=== PATIENT | female | born 1995 | race Caucasian/White ===

== ENCOUNTER 2017-09-09 20:24 | Emergency (ER) | payer OTHER | END 2017-09-09 21:20 | disposition home or self-care (01) | LOC: E/R 21:20 | DX: J30.2 Other seasonal allergic rhinitis (principal) | CPT/HCPCS: 99283; Z7502 ==

== ENCOUNTER 2018-04-02 00:28 | Emergency (ER) | payer OTHER ==
[2018-04-02] MEDS: ACETAMINOPHEN 500 MG TAB PO (04:01)
== END 2018-04-02 04:11 | disposition home or self-care (01) ==
LOC: FTE 00:28
DX: O99.712 Diseases of the skin and subcutaneous tissue complicating pregnancy, second trimester (principal); L02.31 Cutaneous abscess of buttock; Z3A.20 20 weeks gestation of pregnancy
CPT/HCPCS: 99283; Z7502

== ENCOUNTER 2018-04-03 19:37 | Emergency (ER) | payer OTHER ==
[2018-04-03] MEDS: LIDOCAINE 2% (MDV) 20 ML INJ INJ (20:25)
== END 2018-04-03 21:07 | disposition home or self-care (01) ==
LOC: FTE 19:37
DX: L05.01 Pilonidal cyst with abscess (principal)
CPT/HCPCS: 10080; 99282-25

== ENCOUNTER 2018-04-07 12:41 | Emergency (ER) | payer OTHER | END 2018-04-07 14:10 | disposition home or self-care (01) | LOC: FTE 12:41 | DX: O99.89 Other specified diseases and conditions complicating pregnancy, childbirth and the puerperium (principal); Z3A.24 24 weeks gestation of pregnancy; Z48.01 Encounter for change or removal of surgical wound dressing | CPT/HCPCS: 99281; Z7502 ==